=== PATIENT | male | born 1980 | race Two or more races ===

== ENCOUNTER 2016-10-13 20:15 | Emergency (ER) | payer MEDICAID ==
[~2016-10-13] VITALS: Ht 175.3 cm; Wt 66.0 kg
[2016-10-13] MEDS ORDERED: KETOROLAC 60MG/2ML VIAL IM ONE (23:15)
[2016-10-13] MEDS ORDERED: LIDOCAINE HCL 1% 20ML VIAL (Pyxis) INJ MC ONE (23:15)
[2016-10-13] MEDS ORDERED: BACITRACIN ZINC OINT UDPKT TOP ONE (23:15)
[2016-10-13 23:54] VITALS: BP 157/102
== END 2016-10-14 00:43 | disposition home or self-care (01) ==
LOC: ER 20:16
DX: S01.91XA Laceration without foreign body of unspecified part of head, initial encounter (principal); F17.210 Nicotine dependence, cigarettes, uncomplicated; Z91.013 Allergy to seafood; W22.8XXA Striking against or struck by other objects, initial encounter; Y93.89 Activity, other specified; Y92.9 Unspecified place or not applicable; Y99.8 Other external cause status
CPT/HCPCS: 12001; 96372; 99283; J1885; J3490; X7700; Z7610

== ENCOUNTER 2017-09-27 20:14 | Emergency (ER) | payer MEDICAID ==
[~2017-09-27] VITALS: Ht 175.3 cm; Wt 86.0 kg
[2017-09-27 20:43] VITALS: BP 147/91
== END 2017-09-27 23:36 | disposition home or self-care (01) ==
LOC: ER 20:43
DX: K40.90 Unilateral inguinal hernia, without obstruction or gangrene, not specified as recurrent (principal); F17.200 Nicotine dependence, unspecified, uncomplicated; Z91.013 Allergy to seafood
CPT/HCPCS: 99281; Z7610